=== PATIENT | female | born 1995 | race Caucasian/White ===

== ENCOUNTER → 2022-11-16 13:01 | Outpatient (BNVA) | payer BC, MEDICAID, SELFPAY | PROVIDERS: Visit Provider Nurse Practitioner Women's Health | DX: Z32.01 Encounter for pregnancy test, result positive (principal) | CPT/HCPCS: 81025; 84702 ==

== ENCOUNTER 2023-05-06 13:42 | Emergency (ER) | payer BC, MEDICAID, SELFPAY ==
[2023-05-06 13:52] VITALS: BP 137/91; PULSE 89; RESP 17; TEMP 37.2; O2SAT 98; BMI 30.9
--- NOTE | 2023-05-06 14:21 | ED_ITS ---
Documented by User: AKIRA Mcclendon 05/06/23 16:44 HPI - Back Pain/Injury 2 General: Chief Complaint: Back Pain/Injury Stated Complaint: back pain, N Time Seen by Provider: 05/06/23 14:08 Source: patient Mode of arrival: ambulatory Limitations: no limitations History of Present Illness: Patient is a 27-year-old female presents the emergency department complaining of left lower back pain onset 4 days. Patient notes that she also started her period 4 days ago, and it was heavier than usual. She notes that she has stopped bleeding but the back pain has persisted. She denies ever having this back pain associated with her menstrual cycle, and additionally denies any trauma or known inciting event that could have caused the pain. She is also reporting some associated nausea, denies any vomiting or changes in bowel habits. She further denies any chest pains, breathing difficulties, fevers, urinary symptoms, vaginal discharge, or any other symptoms. She does note that the pain has been worsening and is reproducible with palpation, though she also comments it feels deep. MD elicited complaint: back pain Onset (ago): day(s) (4) Timing: constant and progressively worsening Severity: moderate Similar Symptoms Previously: No Location: left lower back Associated symptoms: Reports nausea; Deny abdominal pain, chills, dysuria, fatigue, fever(s), hematuria or vomiting Work related injury: No Review of Systems 2 General: Reports: 10 or more systems reviewed and unremarkable except in HPI and below Const: Denies: fever(s), chills or fatigue Eyes: Denies: change in vision ENMT: Denies: throat pain, ear or mastoid pain or nasal discharge Card: Denies: chest pain, palpitations, swelling of feet/ankles or lightheadedness Resp: Denies: dyspnea, productive cough or wheezing GI: Reports: nausea; Denies: abdominal pain, vomiting or diarrhea : Denies: flank pain, difficulty voiding, dysuria, urinary frequency, hematuria, vaginal odor, vaginal bleeding, vaginal discharge or pelvic pain Musc: Reports: back pain; Denies: neck pain or joint pain Skin/Breast: Denies: rash Neuro: Denies: headache(s), numbness in extremities or weakness in extremities PFSH ED 2 PFSH: Family History Denies family history of Cervical cancer Ovarian cancer Diabetes Breast cancer Hypertension Stroke Physical Exam 2 Const: COMMON NORMALS: no acute distress, patient oriented x3 and no limitations GENERAL APPEARANCE: cooperative, comfortable and well developed ORIENTATION/CONSCIOUSNESS: Yes awake, Yes oriented to person, Yes oriented to place and Yes oriented to time HENMT: COMMON NORMALS: normocephalic, atraumatic and hearing grossly normal bilaterally HEAD & SCALP: normocephalic and atraumatic Eye: COMMON NORMALS: Equal, round and reactive pupils present, EOMs intact bilaterally and conjunctivae normal CONJUNCTIVA: Yes conjunctivae normal P UPIL: Yes Equal, round and reactive pupils present Neck/C-Spine: COMMON NORMALS: full ROM, supple and no JVD Resp: COMMON NORMALS: normal respiratory effort, No retractions, No use of accessory muscles and clear to auscultation bilaterally AUSCULTATION: clear to auscultation bilaterally Cardio: COMMON NORMALS: no JVD, regular rate, regular rhythm, No clicks present (Cardio), No murmurs present (Cardio) and No rub (Cardio) RATE: r egular rate RHYTHM: regular rhythm GI: COMMON NORMALS: Normal to inspection, nondistended, normoactive bowel sounds present, Soft to palpation and non-tender AUSCULTATION: Yes normoactive bowel sounds PALPATION: Yes Soft to palpation RECTAL EXAM: d eferred : COMMON NORMALS: Yes no CVA tenderness BLADDER/KIDNEY EXAM: Yes no CVA tenderness Back/Pelvis: COMMON NORMALS: no CVA tenderness, thoracic and lumbar spine normal to inspection and no thoracic nor lumbar tenderness THORACIC SPINE/UPPER BACK: Yes normal to inspection LUMBAR SPINE/LOWER BACK: Yes normal to inspection, Yes ROM limited, Yes pain with ROM, Yes paraspinal muscle tenderness Lumbar paraspinal muscle tenderness: left and Yes straight leg raise negative bilaterally Extremity: COMMON NORMALS: normal to inspection, full ROM and capillary refill normal Neuro: COMMON NORMALS: patient oriented x3, moves all extremities, no focal motor deficits and no sensory deficits noted SENSORIUM/ORIENTATION: Yes oriented to person, Yes oriented to place and Yes oriented to time Psych: COMMON NORMALS: mental status grossly normal and Normal thought process present THOUGHT PROCESS: Normal thought process present Skin: COMMON NORMALS: no rashes or lesions noted GENERAL SKIN EXAM: no rashes or lesions noted Course 2 Vital Signs: Vital signs: Vital Signs Temperature 98.9 F 05/06/23 16:48 Pulse Rate 81 05/06/23 16:48 Respiratory Rate 14 05/06/23 16:48 Blood Pressure 140/87 05/06/23 16:48 Pulse Oximetry 99 05/06/23 16:48 Oxygen Delivery Me thod Room Air 05/06/23 13:52 MDM - Back Pain/Injury Medical Decision Making Patient seen and evaluated for low back pain for the past 4 days. Patient had initially thought it was due to her menstrual cycle. On arrival patient's vitals normal. Examination only remarkable for some mild to moderate reproducible tenderness palpation of the left lower back. Patient given p.o. dose of Zofran as well as shots of Norflex and Toradol. Her urinalysis was negative for any signs of infection and her hCG qualitative was negative. CBC and CMP unremarkable. Lipase normal. Upon recheck, she was still complaining of pain. Ordered a abdominal CT which was essentially negative for any explanations to her pain. Due to the negative workup, I believe that the patient's pain could be due to to musculoskeletal versus ruptured ovarian cyst in etiology. I will send her home with some Zofran and informed her to take Tylenol and ibuprofen for pain. Also instructed her to follow-up with her primary care next week if her pain did not improve or worsened. Return precautions to the ED also given. Patient agrees with plan and will be discharged home. Labs I reviewed the patient's lab results. 05/06/23 15:18 05/06/23 15:18 Radiology Impressions Abdomen/Pelvis CT 05/06/23 15:08 IMPRESSION: 1. Mild circumferential urinary bladder wall thickening. Correlate with urinalysis to exclude cystitis. 2. Additional findings, as above. Laboratory Results WBC 8.53 10^3/uL (3.29-11.43) 05/06/23 15:18 RBC 5.36 10^6/uL (3.85-5.65) 05/06/23 15:18 Hgb 14.40 g/dL (11.27-16.99) 05/06/23 15:18 Hct 43.9 % (36-47) 05/06/23 15:18 MCV 81.9 fl (85-98) L 05/06/23 15:18 MCH 26.9 pg (27-33) L 05/06/23 15:18 MCHC 32.8 g/dL (30-55) 05/06/23 15:18 RDW 15.6 % (12.1-15.1) H 05/06/23 15:18 Plt Count 341 10^3/cmm (157-399) 05/06/23 15:18 MPV 10.0 fL (7.4-10.4) 05/06/23 15:18 Neut % (Auto) 55.0 % 05/06/23 15:18 Lymph % (Auto) 34.6 % 05/06/23 15:18 [place] % (Auto) 4.5 % 05/06/23 15:18 Eos % (Auto) 4.9 % 05/06/23 15:18 Baso % (Auto) 0.8 % 05/06/23 15:18 Neut # (Auto) 4.69 10^3/uL (1.8-7.7) 05/06/23 15:18 Lymph # (Auto) 3.0 10^3/uL (0.8-4.8) 05/06/23 15:18 [place] # (Auto) 0.4 10^3/uL (0.2-0.9) 05/06/23 15:18 Eos # (Auto) 0.4 10^3/uL (0.0-0.8) 05/06/23 15:18 Baso # (Auto) 0.1 10^3/uL (0.0-0.1) 05/06/23 15:18 Nucleated RBC % (auto) 0 % 05/06/23 15:18 Nucleated RBCs # 0.0 /100WBC 05/06/23 15:18 Sodium 140 mmol/L (136-145) 05/06/23 15:18 Potassium 4.2 mmol/L (3.5-5.1) 05/06/23 15:18 Chloride 104 mmol/L (98-107) 05/06/23 15:18 Carbon Dioxide 25 mmol/L (22-29) 05/06/23 15:18 Anion Gap 15.2 (5-19) 05/06/23 15:18 BUN 10 mg/dL (6-20) 05/06/23 15:18 Creatinine 0.8 mg/dL (0.5-0.9) 05/06/23 15:18 GFR Calculation 86.7 mL/min (90-130) L 05/06/23 15:18 Glucose 84 mg/dL (65-115) 05/06/23 15:18 Calculated Osmolality 288 mOsm/kg (285-295) 05/06/23 15:18 Calcium 9.4 mg/dL (8.5-10.5) 05/06/23 15:18 Total Bilirubin 0.9 mg/dL (0.15-1.2) 05/06/23 15:18 AST 16 U/L (0-32) 05/06/23 15:18 ALT 17 U/L (0-33) 05/06/23 15:18 Alkaline Phosphatase 66 U/L (35-105) 05/06/23 15:18 Total Protein 7.8 g/dL (6.6-8.7) 05/06/23 15:18 Albumin 4.6 g/dL (3.5-5.2) 05/06/23 15:18 Globulin 3.2 g/dL (1.3-4.6) 05/06/23 15:18 Lipase 19 U/L (13-60) 05/06/23 15:18 HCG, Qual Negative (Negative) 05/06/23 14:15 Urine Color Yellow (Yellow) 05/06/23 14:15 Urine Appearance Clear (CLEAR) 05/06/23 14:15 Urine pH 7 (5-7) 05/06/23 14:15 Ur Specific [place] 1.005 (1.005-1.030) 05/06/23 14:15 Urine Protein Neg (Negative) 05/06/23 14:15 Urine Glucose (UA) Norm (Normal) 05/06/23 14:15 Urine Ketones Negative (Negative) 05/06/23 14:15 Urine Blood Neg (Negative) 05/06/23 14:15 Urine Nitrate Negative (Negative) 05/06/23 14:15 Urine Bilirubin Neg (Negative) 05/06/23 14:15 Urine Urobilinogen Norm mg/dL (Negative) 05/06/23 14:15 Ur Leukocyte Esterase Negative (Negative) 05/06/23 14:15 All radiology interpretation(s) finalized by discharge Discharge Plan Discharge Patient Disposition: Home Clinical Impression: Strain of lumbar region Qualifiers: Encounter type: initial encounter Qualified Code(s): S39.012A - Strain of muscle, fascia and tendon of lower back, initial encounter Condition: Stable Prescriptions: New ondansetron 4 mg tablet,disintegrating 4 mg PO TID PRN (Reason: nausea and vomiting) Qty: 60 0RF Discharge Orders: Discharge ED (Routine); Ordered 05/06/23 Ordered By: Maurizio Chen Discharge Diet: Usual diet Discharge Activity: Increase activity as tolerated Patient Instructions: Low Back Strain (ED), Ruptured Ovarian Cyst (ED) Activity Restrictions/Additional Instructions: Zofran for nausea. Alternate Tylenol and ibuprofen for any pain. Follow-up with your primary care provider next week if your symptoms do not improve. If you develop any new or worsening symptoms, return for reevaluation. Coding Level of Care Code ED Sewer Pipe Cleaner for Chg Fwd Documented by User: Donovan Evans DO 05/12/23 12:07 HPI - Back Pain/Injury 2 General: Chief Complaint: Back Pain/Injury Stated Complaint: back pain, N Time Seen by Provider: 05/06/23 14:08 [facility] ED 2 PFSH: Family History Denies family history of Cervical cancer Ovarian cancer Diabetes Breast cancer Hypertension Stroke Course 2 Vital Signs: Vital signs: Vital Signs Temperature 98.9 F 05/06/23 16:48 Pulse Rate 81 05/06/23 16:48 Respiratory Rate 14 05/06/23 16:48 Blood Pressure 140/87 05/06/23 16:48 Pulse Oximetry 99 05/06/23 16:48 Oxygen Delivery Me thod Room Air 05/06/23 13:52 MDM - Back Pain/Injury Medical Decision Making Patient seen and evaluated for low back pain for the past 4 days. Patient had initially thought it was due to her menstrual cycle. On arrival patient's vitals normal. Examination only remarkable for some mild to moderate reproducible tenderness palpation of the left lower back. Patient given p.o. dose of Zofran as well as shots of Norflex and Toradol. Her urinalysis was negative for any signs of infection and her hCG qualitative was negative. CBC and CMP unremarkable. Lipase normal. Upon recheck, she was still complaining of pain. Ordered a abdominal CT which was essentially negative for any explanations to her pain. Due to the negative workup, I believe that the patient's pain could be due to to musculoskeletal versus ruptured ovarian cyst in etiology. I will send her home with some Zofran and informed her to take Tylenol and ibuprofen for pain. Also instructed her to follow-up with her primary care next week if her pain did not improve or worsened. Return precautions to the ED also given. Patient agrees with plan and will be discharged home. Chart reviewed Labs 05/06/23 15:18 05/06/23 15:18 Radiology Impressions Abdomen/Pelvis CT 05/06/23 15:08 IMPRESSION: 1. Mild circumferential urinary bladder wall thickening. Correlate with urinalysis to exclude cystitis. 2. Additional findings, as above. Laboratory Results WBC 8.53 10^3/uL (3.29-11.43) 05/06/23 15:18 RBC 5.36 10^6/uL (3.85-5.65) 05/06/23 15:18 Hgb 14.40 g/dL (11.27-16.99) 05/06/23 15:18 Hct 43.9 % (36-47) 05/06/23 15:18 MCV 81.9 fl (85-98) L 05/06/23 15:18 MCH 26.9 pg (27-33) L 05/06/23 15:18 MCHC 32.8 g/dL (30-55) 05/06/23 15:18 RDW 15.6 % (12.1-15.1) H 05/06/23 15:18 Plt Count 341 10^3/cmm (157-399) 05/06/23 15:18 MPV 10.0 fL (7.4-10.4) 05/06/23 15:18 Neut % (Auto) 55.0 % 05/06/23 15:18 Lymph % (Auto) 34.6 % 05/06/23 15:18 [place] % (Auto) 4.5 % 05/06/23 15:18 Eos % (Auto) 4.9 % 05/06/23 15:18 Baso % (Auto) 0.8 % 05/06/23 15:18 Neut # (Auto) 4.69 10^3/uL (1.8-7.7) 05/06/23 15:18 Lymph # (Auto) 3.0 10^3/uL (0.8-4.8) 05/06/23 15:18 [place] # (Auto) 0.4 10^3/uL (0.2-0.9) 05/06/23 15:18 Eos # (Auto) 0.4 10^3/uL (0.0-0.8) 05/06/23 15:18 Baso # (Auto) 0.1 10^3/uL (0.0-0.1) 05/06/23 15:18 Nucleated RBC % (auto) 0 % 05/06/23 15:18 Nucleated RBCs # 0.0 /100WBC 05/06/23 15:18 Sodium 140 mmol/L (136-145) 05/06/23 15:18 Potassium 4.2 mmol/L (3.5-5.1) 05/06/23 15:18 Chloride 104 mmol/L (98-107) 05/06/23 15:18 Carbon Dioxide 25 mmol/L (22-29) 05/06/23 15:18 Anion Gap 15.2 (5-19) 05/06/23 15:18 BUN 10 mg/dL (6-20) 05/06/23 15:18 Creatinine 0.8 mg/dL (0.5-0.9) 05/06/23 15:18 GFR Calculation 86.7 mL/min (90-130) L 05/06/23 15:18 Glucose 84 mg/dL (65-115) 05/06/23 15:18 Calculated Osmolality 288 mOsm/kg (285-295) 05/06/23 15:18 Calcium 9.4 mg/dL (8.5-10.5) 05/06/23 15:18 Total Bilirubin 0.9 mg/dL (0.15-1.2) 05/06/23 15:18 AST 16 U/L (0-32) 05/06/23 15:18 ALT 17 U/L (0-33) 05/06/23 15:18 Alkaline Phosphatase 66 U/L (35-105) 05/06/23 15:18 Total Protein 7.8 g/dL (6.6-8.7) 05/06/23 15:18 Albumin 4.6 g/dL (3.5-5.2) 05/06/23 15:18 Globulin 3.2 g/dL (1.3-4.6) 05/06/23 15:18 Lipase 19 U/L (13-60) 05/06/23 15:18 HCG, Qual Negative (Negative) 05/06/23 14:15 Urine Color Yellow (Yellow) 05/06/23 14:15 Urine Appearance Clear (CLEAR) 05/06/23 14:15 Urine pH 7 (5-7) 05/06/23 14:15 Ur Specific [place] 1.005 (1.005-1.030) 05/06/23 14:15 Urine Protein Neg (Negative) 05/06/23 14:15 Urine Glucose (UA) Norm (Normal) 05/06/23 14:15 Urine Ketones Negative (Negative) 05/06/23 14:15 Urine Blood Neg (Negative) 05/06/23 14:15 Urine Nitrate Negative (Negative) 05/06/23 14:15 Urine Bilirubin Neg (Negative) 05/06/23 14:15 Urine Urobilinogen Norm mg/dL (Negative) 05/06/23 14:15 Ur Leukocyte Esterase Negative (Negative) 05/06/23 14:15 Discharge Plan Discharge Patient Disposition: Home Clinical Impression: Strain of lumbar region Qualifiers: Encounter type: initial encounter Qualified Code(s): S39.012A - Strain of muscle, fascia and tendon of lower back, initial encounter Condition: Stable Prescriptions: New ondansetron 4 mg tablet,disintegrating 4 mg PO TID PRN (Reason: nausea and vomiting) Qty: 60 0RF Discharge Orders: Discharge ED (Routine); Ordered 05/06/23 Ordered By: Maurizio Chen Discharge Diet: Usual diet Discharge Activity: Increase activity as tolerated Patient Instructions: Low Back Strain (ED), Ruptured Ovarian Cyst (ED) Activity Restrictions/Additional Instructions: Zofran for nausea. Alternate Tylenol and ibuprofen for any pain. Follow-up with your primary care provider next week if your symptoms do not improve. If you develop any new or worsening symptoms, return for reevaluation. Coding Level of Care Code ED Sewer Pipe Cleaner for Fernando Bright
[2023-05-06 14:30] LABS: HCG Qualitative Urine. Negative (Negative)
[2023-05-06] MEDS: ketorolac 60 mg/2 mL INJ IM (14:31)
[2023-05-06] MEDS: orphenadrine 30 mg/mL Inj 2 mL 60 MG IM (14:31)
[2023-05-06] MEDS: ondansetron 2 mg/ML SDV 2 mL 4 MG PO (14:34)
[2023-05-06 14:48] LABS: Add Urine Microscopic? NO; Charge for UA Resulting for Rev
[2023-05-06 14:54] LABS: Bilirubin Urine Neg (Negative); Blood Urine Neg (Negative); Glucose Urine UA Norm (Normal); Ketones Urine Negative (Negative); Leukocyte Esterase Urine Negative (Negative); Nitrate Urine Negative (Negative); Protein Urine Neg (Negative); Specific Gravity, Urine 1.005 (1.005-1.030); Urine Appearance Clear (CLEAR); Urine Color Yellow (Yellow); Urobilinogen Urine Norm (Negative); pH Urine 7 (5-7)
--- NOTE | 2023-05-06 15:08 | CTR_ITS ---
PROCEDURE INFORMATION: Exam: CT Abdomen And Pelvis With Contrast Exam date and time: 05/06/2023 3:39 PM Age: 27 years old Clinical indication: Abdominal pain; Localized; Left; Prior surgery; Surgery date: 6+ months; Surgery type: C section x2; Additional info: Back/pelvic pain TECHNIQUE: Imaging protocol: Computed tomography of the abdomen and pelvis with contrast. Axial, coronal and sagittal reformatted images were created and reviewed. Radiation optimization: All CT scans at this facility use at least one of these dose optimization techniques: automated exposure control; mA and/or kV adjustment per patient size (includes targeted exams where dose is matched to clinical indication); or iterative reconstruction. Contrast material: OMNI 350; Contrast volume: 100 ml; Contrast route: INTRAVENOUS (IV); COMPARISON: No relevant prior studies available. RADIATION DOSE METRICS: Total DLP (mGy-cm): 679.64 FINDINGS: Liver: Unremarkable. Gallbladder and bile ducts: No radiodense gallstones. No biliary ductal dilatation. Pancreas: Unremarkable. Spleen: Unremarkable. Adrenal glands: Normal. No mass. Kidneys and ureters: No mass. Nonobstructing right renal calculus. No hydronephrosis. Stomach and bowel: No bowel wall thickening. No obstruction. No pneumatosis. Appendix: Normal. Intraperitoneal space: No free fluid. No organized fluid collection. No free air. Vasculature: Unremarkable. No aneurysm. Lymph nodes: No pathologically enlarged lymph nodes. Urinary bladder: Mild circumferential urinary bladder wall thickening. Reproductive: Unremarkable. Bones/joints: No acute osseous abnormality. Soft tissues: Tiny, fat containing umbilical hernia. CT/CT abdomen pelvis w con* [id number] IMPRESSION: 1. Mild circumferential urinary bladder wall thickening. Correlate with urinalysis to exclude cystitis. 2. Additional findings, as above.
[2023-05-06 15:23] LABS: Basophils # 0.1 10^3/uL (0.0-0.1); Basophils % 0.8 %; Eosinophils # 0.4 10^3/uL (0.0-0.8); Eosinophils % 4.9 %; Hematocrit 43.9 % (36-47); Lymphocytes % 34.6 %; Mean Corpuscular HGB Conc 32.8 g/dL (30-55); Mean Corpuscular Hemoglobin 26.9 pg (27-33); Mean Corpuscular Volume 81.9 fl (85-98); Monocytes # 0.4 10^3/uL (0.2-0.9); Monocytes % 4.5 %; Neutrophils # 4.69 10^3/uL (1.8-7.7); Nucleated Red Blood Cells % 0 %; Platelet Count 341 10^3/cmm (157-399); Red Blood Count 5.36 10^6/uL (3.85-5.65); Red Cell Distribution Width 15.6 % (12.1-15.1); White Blood Count 8.53 10^3/uL (3.29-11.43)
[2023-05-06 15:39] LABS: Alanine Aminotransferase 17 U/L (0-33); Albumin Level 4.6 g/dL (3.5-5.2); Alkaline Phosphatase 66 U/L (35-105); Anion Gap 15.2 (5-19); Aspartate Amino Transferase 16 U/L (0-32); Blood Urea Nitrogen 10 mg/dL (6-20); Calcium 9.4 mg/dL (8.5-10.5); Carbon Dioxide 25 mmol/L (22-29); Chloride 104 mmol/L (98-107); Creatinine Clr Calc Pharmacy 110.1544; Globulin 3.2 g/dL (1.3-4.6); Glomerular Filtration Rate 86.7 mL/min (90-130); Glucose 84 mg/dL (65-115); Lipase 19 U/L (13-60); Osmolality Calculated 288 mOsm/kg (285-295); Potassium 4.2 mmol/L (3.5-5.1); Sodium 140 mmol/L (136-145); Total Bilirubin 0.9 mg/dL (0.15-1.2); Total Protein 7.8 g/dL (6.6-8.7)
[2023-05-06] MEDS: iohexol 350 mg/mL 500 mL Btl (per mL) IV (15:40)
[2023-05-06 16:48] VITALS: BP 140/87; PULSE 81; RESP 14; TEMP 37.2; O2SAT 99
== END 2023-05-06 16:47 | disposition home or self-care (01) ==
PROVIDERS: Emergency Provider Physician Assistant
DX: S39.012A Strain of muscle, fascia and tendon of lower back, initial encounter (principal); X58.XXXA Exposure to other specified factors, initial encounter
CPT/HCPCS: 74177; 80053; 81003; 81025; 83690; 85025; 96372; 99285; J1885; J2360; J2405; Q9967

== ENCOUNTER → 2023-10-12 11:20 | Outpatient (BNVA) | payer BC, MEDICAID, SELFPAY | PROVIDERS: PCP Nurse Practitioner Family; Visit Provider Nurse Practitioner Family | DX: Z92.89 Personal history of other medical treatment (principal); D50.9 Iron deficiency anemia, unspecified; D64.9 Anemia, unspecified; Z79.899 Other long term (current) drug therapy; Z13.6 Encounter for screening for cardiovascular disorders; Z76.89 Persons encountering health services in other specified circumstances; N96 Recurrent pregnancy loss; N32.89 Other specified disorders of bladder | CPT/HCPCS: 80053; 80061; 81003; 82607; 82728; 83036; 83540; 84439; 84443; 85025 ==

== ENCOUNTER → 2023-10-25 15:53 | Outpatient (BNVA) | payer MEDICAID, SELFPAY | PROVIDERS: PCP Nurse Practitioner Family; Visit Provider Nurse Practitioner Family | DX: D50.9 Iron deficiency anemia, unspecified (principal) | CPT/HCPCS: 82272 ==

== ENCOUNTER → 2024-03-13 08:46 | Outpatient (BNVA) | payer MEDICAID, SELFPAY | PROVIDERS: PCP Nurse Practitioner Family; Visit Provider Nurse Practitioner Family | DX: D50.9 Iron deficiency anemia, unspecified (principal); K90.9 Intestinal malabsorption, unspecified | CPT/HCPCS: 82728; 83540; 83550; 84466; 85025 ==

== ENCOUNTER 2024-06-26 11:05 | Outpatient (CLI) | payer BC, MEDICAID, SELFPAY | END 2024-06-26 11:06 | disposition home or self-care (01) | LOC: LAB 11:08 | PROVIDERS: PCP Nurse Practitioner Family; Visit Provider Family Medicine | DX: N96 Recurrent pregnancy loss (principal) | CPT/HCPCS: 84702 ==

== ENCOUNTER 2024-07-21 14:39 | Emergency (ER) | payer SELFPAY ==
[2024-07-21 14:50] VITALS: BP 112/77; PULSE 82; RESP 16; TEMP 36.7; O2SAT 98; BMI 34.3
--- NOTE | 2024-07-21 15:15 | W.ED.ABDPA2 ---
HPI - Abdominal Pain General: Chief Complaint: Abdominal Pain Stated Complaint: 8 weeks preg, abd pain Time Seen by Provider: 07/21/24 14:44 History of Present Illness: 28-year-old female [id number], [id number], LMP 05/25/24, presents to ED due to left lower abdominal pain x1 day. No discharge. No dysuria. She has not attempted intercourse and does not know if this has pain associated. Precipitating factors: Patient had severe nausea was prescribed Zofran, and did not have BM for 1 week, requiring large bore enema. This was 1 week ago. She has not had BM today. Associated Symptoms: Reports change in stool character, constipation and nausea; Denies chills, diarrhea, fever(s) and vomiting Related Data Home Medications ?Medication ?Instructions ?Recorded ?Confirmed PNV 153-FA 400 mcg-om3 35 mg-dha 1 tab PO DAILY 07/21/24 07/21/24 25 mg-epa 5 mg-fish oil chew tablet ( Gummies) ondansetron HCl 4 mg tablet 4 mg PO TID PRN Nausea And Vomiting 07/21/24 07/21/24 Previous Rx's ?Medication ?Instructions ?Recorded magnesium citrate 296 ml PO DAILY PRN constipation 07/21/24 #296 mL Allergies Allergy/AdvReac Type Severity Reaction Status Date / Time n/a Allergy n/a Uncoded 07/21/24 15:07 Review of Systems General: Reports: 10 or more systems reviewed and unremarkable except in HPI and below Const: Reports: fatigue; Denies: fever(s) or chills Eyes: Denies: change in vision or blurry vision Card: Denies: chest pain or palpitations Resp: Denies: dyspnea or productive cough GI: Reports: abdominal pain, nausea, constipation and change in stool character; Denies: vomiting or diarrhea : Denies: flank pain or difficulty voiding Musc: Denies: neck pain, back pain, joint pain or joint stiffness Neuro: Denies: headache(s) or numbness in extremities Psych: Denies: anxiety or depression PFSH ED PFSH: Medical History (Updated 07/21/24 @ 17:22 by AKIRA Jamison) Iron malabsorption History of blood loss Iron deficiency anemia Increased urinary frequency Bladder wall thickening Encounter for screening for cardiovascular disorders Medication management Anemia H/O cholecystitis Hx of iron deficiency History of blood transfusion Surgical History (Updated 10/12/23 @ 11:03 by PAOLA Clemente) S/P section 2016 2019 Family History (Updated 10/12/23 @ 11:38 by PAOLA Clemente) Mother Cervical cancer Grandmother Skin cancer Denies family history of Ovarian cancer Diabetes Breast cancer Hypertension Stroke Social History Smoking and tobacco/nicotine status: current every day tobacco/nicotine user Female Reproductive History: Para: 2 Spontaneous abortions: Yes Physical Exam Const: COMMON NORMALS: patient oriented x3 HENMT: COMMON NORMALS: normocephalic and atraumatic HEAD & SCALP: normocephalic and atraumatic FACE & SINUS: normal facial exam Lymph: LYMPHATIC: no lymphadenopathy noted Chest: COMMONS NORMALS: normal inspection of the chest Resp: COMMON NORMALS: normal respiratory effort and clear to auscultation bilaterally AUSCULTATION: clear to auscultation bilaterally Cardio: COMMON NORMALS: regular rate and regular rhythm RATE: regular rate RHYTHM: regular rhythm GI: COMMON NORMALS: Normal to inspection, nondistended, normoactive bowel sounds present and Soft to palpation AUSCULTATION: Yes normoactive bowel sounds PALPATION: Yes Soft to palpation and Yes Tenderness to palpation present (GI) Details: LLQ PERCUSSION: dullness to percussion : COMMON NORMALS: Yes no CVA tenderness BLADDER/KIDNEY EXAM: Yes no CVA tenderness Back/Pelvis: COMMON NORMALS: no CVA tenderness Extremity: COMMON NORMALS: normal to inspection, full ROM and capillary refill normal Neuro: COMMON NORMALS: patient oriented x3 and CN's II-XII intact bilaterally Psych: COMMON NORMALS: mental status grossly normal and Normal thought process present THOUGHT PROCESS: Normal thought process present Skin: COMMON NORMALS: no rashes or lesions noted and no wounds GENERAL SKIN EXAM: no rashes or lesions noted Course Vital Signs: Vital signs: Vital Signs Temperature 98.0 F 07/21/24 14:50 Pulse Rate 70 07/21/24 17:37 Respiratory Rate 16 07/21/24 17:37 Blood Pressure 117/66 07/21/24 17:37 Pulse Oximetry 98 07/21/24 17:37 Oxygen Delivery Me thod Room Air 07/21/24 16:53 MDM - Abdominal Pain Medical Decision Making 28-year-old female 8 weeks without establishment with OB, presents with left lower quadrant pain. Precipitating factors is obstipation requiring enema last week, previously on Zofran. Will check routine labs prior to further decision making. Lab Data 07/21/24 15:21 07/21/24 15:21 Labs/Radiology: Radiology Impressions Obstetrics Ultrasound 07/21/24 16:09 IMPRESSION: Single living intrauterine embryo with sonographic age of 8 weeks and 0 days. There may be a small subchorionic hemorrhage. Laboratory Results WBC 11.95 10^3/uL (3.29-11.43) H 07/21/24 15:21 RBC 5.00 10^6/uL (3.85-5.65) 07/21/24 15: Hgb 13.50 g/dL (11.27-16.99) 07/21/24 15: Hct 41.1 % (36-47) 07/21/24 15: MCV 82.2 fl (85-98) L 07/21/24: MCH 27.0 pg (27-33) 07/21/24 15: MCHC 32.8 g/dL (30-55) 07/21/24 15: RDW 15.1 % (12.1-15.1) 07/21/24: Plt Count 313 10^3/cmm (157-399) 07/21/24 15:21 MPV 10.4 fL (7.4-10.4) 07/21/24 15: Neut % (Auto) 65.4 % 07/21/24: Lymph % (Auto) 25.5 % 07/21/24 15:21 [place] % (Auto) 6.2 % 07/21/24 15:21 Eos % (Auto) 2.0 % 07/21/24: Baso % (Auto) 0.6 % 07/21/24:21 Neut # (Auto) 7.82 10^3/uL (1.8-7.7) H 07/21/24 15:21 Lymph # (Auto) 3.1 10^3/uL (0.8-4.8) 07/21/24:21 [place] # (Auto) 0.7 10^3/uL (0.2-0.9) 07/21/24 15:21 Eos # (Auto) 0.2 10^3/uL (0.0-0.8) 07/21/24 15: Baso # (Auto) 0.1 10^3/uL (0.0-0.1) 07/21/24 15:21 Nucleated RBC % (auto) 0 % 07/21/24 15: Nucleated RBCs # 0.0 /100WBC 07/21/24 15:21 Sodium 137 mmol/L (136-145) 07/21/24 15:21 Potassium 3.7 mmol/L (3.5-5.1) 07/21/24 15: Chloride 102 mmol/L (98-107) 07/21/24: Carbon Dioxide 21 mmol/L (22-29) L 07/21/24 15: Anion Gap 17.7 (5-19) 07/21/24 15: BUN 5 mg/dL (6-20) L 07/21/24 15: Creatinine 0.6 mg/dL (0.5-0.9) 07/21/24 15: GFR Calculation 119.9 mL/min (90-130) 07/21/24 15: Glucose 94 mg/dL (65-115) 07/21/24 15: Calculated Osmolality 281 mOsm/kg (285-295) L 07/21/24 15: Calcium 9.6 mg/dL (8.5-10.5) 07/21/24 15: Total Bilirubin 0.5 mg/dL (0.15-1.2) 07/21/24 15: AST 12 U/L (0-32) 07/21/24 15:21 ALT 13 U/L (0-33) 07/21/24 15: Alkaline Phosphatase 55 U/L (35-105) 07/21/24 15: Total Protein 7.7 g/dL (6.6-8.7) 07/21/24 15: Albumin 4.4 g/dL (3.5-5.2) 07/21/24 15: Globulin 3.3 g/dL (1.3-4.6) 07/21/24: Lipase 32 U/L (13-60) 07/21/24 15:21 Ser , Semi-Qnt 638067.00 mIU/mL 07/21/24 15:21 Urine Color Yellow (Yellow) 07/21/24 15:39 Urine Appearance Clear (CLEAR) 07/21/24 15:39 Urine pH 6.0 (5-7) 07/21/24 15:39 Ur Specific [place] 1.006 (1.005-1.030) 07/21/24 15:39 Urine Protein Negative (Negative) 07/21/24 15:39 Urine Glucose (UA) Negative (Normal) 07/21/24 15:39 Urine Ketones Negative (Negative) 07/21/24 15:39 Urine Blood Negative (Negative) 07/21/24 15:39 Urine Nitrate Negative (Negative) 07/21/24 15:39 Urine Bilirubin Negative (Negative) 07/21/24 15:39 Urine Urobilinogen 0.2 mg/dL (Negative) 07/21/24 15:39 Ur Leukocyte Esterase Negative (Negative) 07/21/24 15:39 Urine RBC 11-20 /hpf (0-2) H 07/21/24 15:39 Urine WBC 0-5 /hpf (0-5) 07/21/24 15:39 Ur Squamous Epith Cells 0-5 /hpf (0-5) 07/21/24 15:39 Amorphous Sediment Not Reportable 07/21/24 15:39 Urine Bacteria None seen /hpf (NONE) 07/21/24 15:39 Hyaline Casts 0-4 /lpf H 07/21/24 15:39 Blood Type A Positive 07/21/24 15:21 Rho(D) Type Rh positive 07/21/24 15:21 Antibody Screen Negative 07/21/24 15:21 All radiology interpretation(s) finalized by discharge ED provider radiology interpretation(s): HR 161, trace subchorionic bleed, minimum pelvic fluid Discharge Plan Discharge Patient Disposition: Home Clinical Impression: Subchorionic bleed, Threatened , Obstipation Condition: Stable Prescriptions: New magnesium citrate Solution 296 ml PO DAILY PRN (Reason: constipation) Qty: 296 0RF Rx Instructions: once No Action ondansetron HCl 4 mg tablet 4 mg PO TID PRN (Reason: Nausea And Vomiting) Gummies 400 mcg-35 mg- 25 mg-5 mg Tablet,Chewable 1 tab PO DAILY Discharge Orders: Discharge ED (Routine); Ordered 07/21/24 Ordered By: Tiffanie Schneider Referrals: AMADO Velasco, PAOLA [Primary Care Provider, Family Practice] Kely Peña DO [Physician, SALES AND SERVICE SPECIALIST] Patient Instructions: Subchorionic Hemorrhage (ED) Activity Restrictions/Additional Instructions: Pelvic rest?no sex. Your OB will release you Do not lift over a gallon of milk until released by OB Increase fluid intake Magnesium citrate sent to pharmacy. Take x 1. Then daily Colace. Call OB in a.m. for follow-up and establishing care. Return to ED for worsening pain. Print Language: Maltese Coding Level of Care Code ED Supervisor Enrobing for Fernando Bright
[2024-07-21 15:28] LABS: Basophils # 0.1 10^3/uL (0.0-0.1); Basophils % 0.6 %; Eosinophils # 0.2 10^3/uL (0.0-0.8); Hematocrit 41.1 % (36-47); Lymphocytes # 3.1 10^3/uL (0.8-4.8); Lymphocytes % 25.5 %; Mean Corpuscular HGB Conc 32.8 g/dL (30-55); Mean Corpuscular Volume 82.2 fl (85-98); Mean Platelet Volume 10.4 fL (7.4-10.4); Monocytes # 0.7 10^3/uL (0.2-0.9); Monocytes % 6.2 %; Neutrophils # 7.82 10^3/uL (1.8-7.7); Neutrophils % 65.4 %; Nucleated Red Blood Cells % 0 %; Platelet Count 313 10^3/cmm (157-399); Red Cell Distribution Width 15.1 % (12.1-15.1); White Blood Count 11.95 10^3/uL (3.29-11.43)
[2024-07-21 15:45] LABS: Bilirubin Urine Negative (Negative); Blood Urine Negative (Negative); Glucose Urine UA Negative (Normal); Ketones Urine Negative (Negative); Leukocyte Esterase Urine Negative (Negative); Nitrate Urine Negative (Negative); Protein Urine Negative (Negative); Specific Gravity, Urine 1.006 (1.005-1.030); Urine Appearance Clear (CLEAR); Urine Color Yellow (Yellow); Urobilinogen Urine 0.2 mg/dL (Negative)
[2024-07-21 15:47] LABS: Add Urine Microscopic? YES; Bacteria Urine None Seen /hpf; Hyaline Casts Urine 0-4 /lpf; Squamous Epithelial Cell Urine 0-5 /hpf (0-5); WBC Urine 0-5 /hpf (0-5)
[2024-07-21 15:59] LABS: Alanine Aminotransferase 13 U/L (0-33); Albumin Level 4.4 g/dL (3.5-5.2); Alkaline Phosphatase 55 U/L (35-105); Anion Gap 17.7 (5-19); Aspartate Amino Transferase 12 U/L (0-32); Blood Urea Nitrogen 5 mg/dL (6-20); Calcium 9.6 mg/dL (8.5-10.5); Carbon Dioxide 21 mmol/L (22-29); Chloride 102 mmol/L (98-107); Creatinine Clr Calc Pharmacy 153.6515; Globulin 3.3 g/dL (1.3-4.6); Glomerular Filtration Rate 119.9 mL/min (90-130); Glucose 94 mg/dL (65-115); Lipase 32 U/L (13-60); Osmolality Calculated 281 mOsm/kg (285-295); Potassium 3.7 mmol/L (3.5-5.1); Sodium 137 mmol/L (136-145); Total Bilirubin 0.5 mg/dL (0.15-1.2); Total Protein 7.7 g/dL (6.6-8.7)
--- NOTE | 2024-07-21 16:09 | USR_ITS ---
PROCEDURE INFORMATION: Exam: US First Trimester, Transabdominal and US , Transvaginal Exam date and time: 07/21/2024 4:45 PM Age: 28 years old Clinical indication: complicated by abdominal or pelvic pain; Left lower quadrant; First trimester (<14 weeks 0 days); Gestational age or lmp: 8w1d per PT 8w0d ultrasound; ; Prior surgery; Surgery date: 6+ months; Surgery type: Unsure of dates but patient reports having two c sections; Additional info: Threatened LABS AND CLINICAL REPORTS: Gestational age (Established): 8 w 1 d Estimated due date (Established): 03/01/2025 TECHNIQUE: Imaging protocol: Real-time transabdominal obstetrical ultrasound of the maternal pelvis and a first trimester , less than 14 weeks 0 days, with image documentation. Transvaginal imaging was used for better evaluation of the fetus, adnexa, and/or cervix. COMPARISON: CT abdomen pelvis w con* [id number] 05/06/2023 3:39 PM FINDINGS: GESTATION: Gestation: Yolk sac measures 3.5 mm. Embryo/ cardiac activity (BPM): 161 bpm Extra-embryonic membranes/Placenta: There may be a small subchorionic hemorrhage measuring 0.4 cm. Amniotic/Chorionic fluid: Amniotic and extra-amniotic fluid are normal for gestational age. BIOMETRY: Gestational age (AUA): Based on the crown-rump length of 1.57 cm, estimated sonographic age is 8 weeks and 0 days. MATERNAL: Uterus: Unremarkable. Cervix: Cervical length measures 3.3 cm. Trace fluid in the endocervical canal. Right ovary/adnexa: Obscured by lack of adequate acoustic window. Left ovary/adnexa: Obscured by lack of adequate acoustic window. Intraperitoneal space: No intraperitoneal free fluid. US/US OB <=14 wk fetus w transvag IMPRESSION: Single living intrauterine embryo with sonographic age of 8 weeks and 0 days. There may be a small subchorionic hemorrhage.
[2024-07-21 16:53] VITALS: BP 120/71; PULSE 73; RESP 16; O2SAT 97
[2024-07-21 17:37] VITALS: BP 117/66; PULSE 70; RESP 16; O2SAT 98
== END 2024-07-21 17:36 | disposition home or self-care (01) ==
PROVIDERS: Emergency Medicine; Emergency Provider Physician Assistant; PCP Nurse Practitioner Family
DX: O20.8 Other hemorrhage in early pregnancy (principal); O20.0 Threatened abortion; Z3A.08 8 weeks gestation of pregnancy; K59.00 Constipation, unspecified; Z72.0 Tobacco use
CPT/HCPCS: 36415; 76801; 76817; 80053; 81001; 83690; 84702; 85025; 86850; 86900; 99284

== ENCOUNTER → 2024-10-03 09:52 | Outpatient (BNVA) | payer BC, MEDICAID, SELFPAY | PROVIDERS: PCP Nurse Practitioner Family; Visit Provider Nurse Practitioner Family | DX: D50.9 Iron deficiency anemia, unspecified (principal); K90.9 Intestinal malabsorption, unspecified; E55.9 Vitamin D deficiency, unspecified; Z79.899 Other long term (current) drug therapy | CPT/HCPCS: 80053; 80061; 81003; 82306; 82728; 83036; 83550; 84443; 85025 ==

== ENCOUNTER 2024-11-07 21:45 | Outpatient (CLI) | payer BC, MEDICAID, SELFPAY ==
[2024-11-07 22:06] VITALS: BP 129/80; PULSE 88
[2024-11-07 22:14] VITALS: BMI 33.1
[2024-11-07 22:20] VITALS: BP 123/75; PULSE 87
[2024-11-07 22:35] VITALS: BP 118/73; PULSE 90
[2024-11-07 22:40] VITALS: BP 118/73; PULSE 90; RESP 17; TEMP 35.2; O2SAT 100
[2024-11-07 22:41] VITALS: PULSE 87; TEMP 35.2; O2SAT 99
== END 2024-11-07 22:45 | disposition home or self-care (01) ==
LOC: OPOB 21:57 → OBGYN 21:57
PROVIDERS: PCP Nurse Practitioner Family; Visit Provider Family Medicine
DX: O36.8190 Decreased fetal movements, unspecified trimester, not applicable or unspecified (principal); Z3A.00 Weeks of gestation of pregnancy not specified; R10.9 Unspecified abdominal pain; M54.9 Dorsalgia, unspecified; R25.2 Cramp and spasm
CPT/HCPCS: 99211

== ENCOUNTER 2025-01-12 13:25 | Outpatient (CLI) | payer BC, MEDICAID, SELFPAY ==
[2025-01-12 13:25] VITALS: BMI 34.0
[2025-01-12 13:36] VITALS: BP 131/72; PULSE 106
[2025-01-12 13:51] VITALS: BP 126/76; PULSE 103
[2025-01-12 14:02] VITALS: BP 126/76; PULSE 103; RESP 16; O2SAT 98
== END 2025-01-12 14:00 | disposition home or self-care (01) ==
LOC: OPOB 13:29 → OBGYN 13:30
PROVIDERS: PCP Nurse Practitioner Family; Visit Provider Family Medicine
DX: O24.419 Gestational diabetes mellitus in pregnancy, unspecified control (principal); Z3A.00 Weeks of gestation of pregnancy not specified
CPT/HCPCS: 59025; 99211

== ENCOUNTER 2025-01-25 20:35 | Outpatient (CLI) | payer BC, MEDICAID, SELFPAY ==
[2025-01-25 20:35] VITALS: BMI 35.0
[2025-01-25 21:04] VITALS: BP 127/78; PULSE 96
[2025-01-25 21:20] VITALS: BP 133/75; PULSE 100
[2025-01-25 21:35] VITALS: BP 133/75; PULSE 96
[2025-01-25 21:49] VITALS: BP 139/74; PULSE 96
[2025-01-25 22:05] VITALS: BP 130/73; PULSE 92
[2025-01-25 22:15] VITALS: BP 130/72; PULSE 92
== END 2025-01-25 22:13 | disposition home or self-care (01) ==
LOC: OPOB 20:52 → OBGYN 20:55
PROVIDERS: PCP Nurse Practitioner Family; Visit Provider Family Medicine
DX: O26.899 Other specified pregnancy related conditions, unspecified trimester (principal); Z3A.00 Weeks of gestation of pregnancy not specified; R51.9 Headache, unspecified; M79.89 Other specified soft tissue disorders; R42 Dizziness and giddiness
CPT/HCPCS: 59025; 99211

== ENCOUNTER 2025-01-30 18:00 | Outpatient (CLI) | payer BC, MEDICAID, SELFPAY ==
[2025-01-30 18:00] VITALS: BMI 34.7
[2025-01-30 18:16] VITALS: BP 129/75; PULSE 111
--- NOTE | 2025-01-30 18:30 | PC.NURSE ---
1800 PATIENT HERE WITH COMPLAINT OF FALLING DOWN 3 CON[address] STAIRS, STATES UNSURE IF SHE HIT HER ABD OR NOT, IS COMPLAINS OF SEVERE LEFT FOOT PAIN AND NAVARRO PAIN, SHE DOES HAVE A FEW ABRASIONS ON HER LEFT NAVARRO, NO BRUISING SEEN ON LEG OR FOOT. PATIENT CAN BARELY PUT ANY WEIGHT ON HER FOOT. PATIENT DENIES FEELING ANY PAIN AT ALL ON HER ABD WITH PALPATION, NO REDNESS OR ABRASIONS OR OGDEN OF ANY KIND ON HER ABD.
[2025-01-30 18:37] VITALS: BP 133/79; PULSE 99
[2025-01-30 18:55] VITALS: BP 134/73; PULSE 112
[2025-01-30 19:09] VITALS: BP 134/73; PULSE 112; RESP 15
== END 2025-01-30 19:10 | disposition home or self-care (01) ==
LOC: OPOB 18:07 → OBGYN 18:08
PROVIDERS: PCP Nurse Practitioner Family; Visit Provider Family Medicine
DX: O36.8190 Decreased fetal movements, unspecified trimester, not applicable or unspecified (principal); Z3A.00 Weeks of gestation of pregnancy not specified
CPT/HCPCS: 59025; 99211

== ENCOUNTER 2025-02-03 10:29 | Outpatient (CLI) | payer BC, MEDICAID, SELFPAY ==
--- NOTE | 2025-02-03 10:34 | USR_ITS ---
PROCEDURE INFORMATION: Exam: US , Follow up Exam date and time: 02/03/2025 10:44 AM Age: 29 years old Clinical indication: Screening exam; Routine US, uterus; Additional info: Gestational diabetes mellitus LABS AND CLINICAL REPORTS: Gestational age (Established): 36 w 2 d Estimated due date (Established): 03/01/2025 TECHNIQUE: Imaging protocol: Transabdominal ultrasound of the uterus, real time with image documentation. Follow-up (eg, re-evaluation of size by measuring standard growth parameters and amniotic fluid volume, re-evaluation of organ system(s) suspected or confirmed to be abnormal on a previous scan). COMPARISON: US OB >= 14 weeks fetus [id number] 10/24/2024 11:12 AM FINDINGS: Gestation: Single, viable intrauterine gestation. heart rate: 142 bpm presentation and position: The fetus is in cephalic presentation. Placenta: The placenta is fundal. Grade 2 placenta. Amniotic fluid index: KAIA is 9.96 cm. Umbilical cord and insertion: There is a 2 vessel umbilical cord, findings are stable. BIOMETRY: Gestational age (AUA): Growth parameters are symmetric and consistent with a composite estimated gestational age (EGA) of 36 weeks 2 days. Estimated weight: 2893.85 g. EFW by AC, BPD, FL, HC, [place] 1985. 2894 g or 6 lb 6 oz., 52nd percentile. There has been interval growth of the fetus. Biparietal diameter (BPD): 9 cm. EGA (BPD) is 36 w 3 d. 65.2 % percentile. 9.0 cm, EGA of 36 weeks 6 days, 65th percentile. Head circumference (HC): 32.27 cm. EGA (HC) is 36 w 3 d. 24.7 % percentile. 32.27 cm, EGA of 36 weeks 3 days, 25th percentile. Abdominal circumference (AC): 32.29 cm. EGA (AC) is 36 w 1 d. 59.1 % percentile. 32.29 cm common EGA of 36 weeks 1 day, 59th percentile. Femur length (FL): 7.07 cm. EGA (FL) is 36 w 2 d. 45.1 % percentile. 7.07 cm, EGA of 36 weeks 2 days, 45th percentile. HC/AC: 1. (Normal range: 0.92 - 1.07) FL/HC: 21.91. (Normal range: 20.3 - 22.24) FL/BPD: 78.56. (Normal range: 71 - 87) FL/AC: 21.9. (Normal range: 20 - 24) MATERNAL: Cervix: Cervical length measures 4.7 cm. The cervix is unremarkable. There is no shortening or effacement. The cervix measures 4.7 cm using a transabdominal measurement. US/[place] [id number] IMPRESSION: 1. Single, viable intrauterine gestation. Estimated gestational age of 36 weeks 2 days by the current ultrasound. Estimated delivery date by the current ultrasound is 03/01/2025. This is 2 days earlier than the previous ultrasound. There has been interval growth of the fetus. 2. There is a 2 vessel umbilical cord, findings are stable.
== END 2025-02-03 10:30 | disposition home or self-care (01) ==
LOC: RAD 10:30
PROVIDERS: PCP Nurse Practitioner Family; Visit Provider Family Medicine
DX: O24.419 Gestational diabetes mellitus in pregnancy, unspecified control (principal); Z3A.36 36 weeks gestation of pregnancy; R93.89 Abnormal findings on diagnostic imaging of other specified body structures
CPT/HCPCS: 76816